=== PATIENT | male | born 1960 | race Hispanic/Latino ===

== ENCOUNTER 2024-02-01 11:11 | Inpatient (IN) | payer SELFPAY ==
[~2024-02-01] VITALS: Ht 182.9 cm; Wt 140.0 kg
[2024-02-01] VITALS (37 sets, daily range): BP systolic 80–120; BP diastolic 40–82; PULSE 66–148; RESP 24–35; O2SAT 97–99
[2024-02-01 11:30] LABS: ABG BASE EXCESS -7.9 mmol/L (-2.0-3.0); ABG HCO3 15.7 mmol/L (21.0-28.0); ABG OXYGEN SATURATION 89.6 % (95.0-99.0); ABG PCO2 28 mmHg (35-48); ABG PH 7.368 (7.35-7.450); CARBON MONOXIDE 2.1; HHb 10.1; PO2, ARTERIAL BG 58.5 mmHg (83.0-108.0); VENT MODE, BG RA (ROOM AIR)
[2024-02-01 11:39] LABS: BASOPHILS # (AUTO) 0.14 K/uL (0.00-0.20); BASOPHILS % (AUTO) 1.2 % (0.0-5.0); EOSINOPHILS # (AUTO) 0.11 K/uL (0.00-0.70); EOSINOPHILS % (AUTO) 0.9 % (0.0-8.0); HEMATOCRIT 40.5 % (42-54); IMMATURE GRANULOCYTE ABSOLUTE 0.59 K/uL (0-1); LYMPHOCYTES # (AUTO) 3.5 K/uL (1.0-4.8); LYMPHOCYTES % (AUTO) 29.2 % (21.0-51.0); MEAN CORPUSCULAR HEMOGLOBIN 30.3 pg (27.0-33.0); MEAN CORPUSCULAR HGB CONC 34.8 g/dL (32.0-36.0); MEAN CORPUSCULAR VOLUME 87.1 fL (79-99); MONOCYTES # (AUTO) 1.2 K/uL (0.1-1.0); MONOCYTES % (AUTO) 9.7 % (3.0-13.0); NEUTROPHILS # (AUTO) 6.5 K/uL (1.8-7.7); NEUTROPHILS % (AUTO) 54.1 % (40.0-77.0); NUCLEATED RED BLOOD CELLS 0.2 % (0.0-0.19); PLATELET COUNT (AUTO) 314 K/uL (130-400); RED BLOOD CELL COUNT(AUTO) 4.65 MIL/uL (4.50-6.20); RED CELL DISTRIBUTION WIDTH 12.5 % (11.0-15.5); WHITE BLOOD COUNT (AUTO) 12.1 K/uL (4.8-10.8)
[2024-02-01 11:47] LABS: CREATININE 2.1 mg/dL (0.5-1.3); POTASSIUM 4.4 mmol/L (3.5-5.1)
[2024-02-01] MEDS ORDERED: acetaMINOPHEN 500 MG TABLET PO ONE (12:00)
[2024-02-01 12:01] LABS: ALBUMIN 3.2 g/dL (3.5-5.0); B-TYPE NATRIURETIC PEPTIDE 25 pg/mL (0-100); BILIRUBIN,TOTAL 0.6 mg/dL (0.2-1.0); MAGNESIUM 2.3 mg/dL (1.80-2.40); TOTAL PROTEIN, SERUM 6.6 g/dL (6.0-8.3)
[2024-02-01] MEDS: proPOFol 1000 MG/100 ML IV PRN (12:12)
[2024-02-01] MEDS: FENTanyl 1000MCG+NS 100ML 100 ML IV SCH (12:26)
[2024-02-01 12:31] LABS: APPEARANCE,URINE CLOUDY (CLEAR); BILIRUBIN,URINE NEGATIVE (NEGATIVE); COLOR,URINE YELLOW (YELLOW); GLUCOSE, URINE (UA) 30 mg/dL (NEGATIVE); KETONES,URINE NEGATIVE (NEGATIVE); LEUKOCYTE ESTERASE ,URINE NEGATIVE Leu/uL (NEGATIVE); NITRATE,URINE NEGATIVE (NEGATIVE); OCCULT BLOOD,URINE LARGE (NEGATIVE); PH,URINE 5.5 (5.0-8.0); PROTEIN,URINE 100 mg/dL (NEGATIVE); UROBILINOGEN,URINE 3 mg/dL (0.2-1.0)
[2024-02-01 12:32] LABS: ADD UA MICROSCOPIC YES
[2024-02-01 12:34] LABS: BACTERIA,URINE RARE /HPF (None Seen); MUCUS,URINE RARE LPF (None Seen); RBC,URINE 51-100 /HPF (0-1); SQUAMOUS EPITHELIAL CELL,UR FEW /HPF (0-2)
[2024-02-01] MEDS: 0.9%NACL 1000ML 2,328 ML IV ONE (12:52)
[2024-02-01] MEDS: acetaMINOPHEN 650 MG SUPPOSITORY RC ONE (13:09)
[2024-02-01] MEDS: proPOFol 1000 MG/100 ML 100 ML IV ONE ×2 (13:12→22:04)
[2024-02-01] MEDS: ZOSYN 3.375GM +NS 50ML IV ONE (13:42)
[2024-02-01] MEDS: ZOSYN 3.375GM+NS 50ML 50 ML ONE (13:43)
[2024-02-01 14:15] LABS: ABG BASE EXCESS -7.9 mmol/L (-2.0-3.0); ABG OXYGEN SATURATION 99.8 % (95.0-99.0); ABG PCO2 57 mmHg (35-48); ABG PH 7.185 (7.35-7.450); VENT MODE, BG AC (ROOM AIR)
[2024-02-01 14:33] LABS: SARS-CoV-2, RNA, NAAT NEGATIVE SARS CoV-2 (NEGATIVE)
[2024-02-01 14:39] LABS: INFLUENZA TYPE A Negative For Type A (NEGATIVE); INFLUENZA TYPE B Negative For Type B (NEGATIVE)
[2024-02-01 14:48] LABS: HEMOGLOBIN A1C 5.7 % (4.0-6.0)
[2024-02-01] MEDS: 0.9%NACL 1000ML 1,000 ML IV SCH ×2 (15:00→17:17)
[2024-02-01] MEDS ORDERED: doCUSate SODIUM 100 MG CAP PO PRN (15:00)
[2024-02-01 16:28] LABS: ABG BASE EXCESS -7.8 mmol/L (-2.0-3.0); ABG HCO3 18.5 mmol/L (21.0-28.0); ABG OXYGEN SATURATION 98.3 % (95.0-99.0); ABG PCO2 41 mmHg (35-48); ABG PH 7.275 (7.35-7.450); VENT MODE, BG AC (ROOM AIR)
[2024-02-01 16:40] LABS: AMPHET/METH SCREEN,URINE NEGATIVE (NEGATIVE); BARBITURATE SCREEN, URINE NEGATIVE (NEGATIVE); BENZODIAZEPINES SCREEN,URINE NEGATIVE (NEGATIVE); CANNABINOID SCREEN,URINE NEGATIVE (NEGATIVE); COCAINE SCREEN,URINE NEGATIVE (NEGATIVE); OPIATE SCREEN,URINE NEGATIVE (NEGATIVE); PHENCYCLIDINE SCREEN,URINE NEGATIVE (NEGATIVE)
[2024-02-01] MEDS: CHLORHEXIDINE GLUCONATE 15 ML MOUTHWASH MM SCH (17:14)
[2024-02-01] MEDS: ARTIFICAL TEARS SOL 15 ML OU SCH (17:14)
[2024-02-01] MEDS: acetaMINOPHEN 325 MG SUPPOSITORY RC ONE (17:15)
[2024-02-01] MEDS: IpraTROPium 0.5 MG/2.5 ML INH IH PRN (17:19)
[2024-02-01] MEDS: acetaMINOPHEN 500 MG TABLET NG PRN (17:19)
[2024-02-01] MEDS: ASPIRIN 81MG CHEW TAB NG ONE (17:19)
[2024-02-01] MEDS: BUDESONIDE 0.5 MG/2 ML INH IH SCH (17:19)
[2024-02-01] MEDS: DOXYCYCLINE 100MG+NS 250ML 250 ML IV SCH (17:43)
[2024-02-01 17:52] LABS: CREATININE 2.1 mg/dL (0.5-1.3); POTASSIUM 3.4 mmol/L (3.5-5.1)
[2024-02-01] MEDS: SODIUM BICARB 50MEQ 50ML VIAL IV STA (18:50)
[2024-02-01] MEDS: NOREPINEPHRIN 4MG/NS 250ML 250 ML IV PRN (19:49)
[2024-02-01] MEDS: FAMOTIDINE 20MG VIAL IV SCH (20:17)
[2024-02-01] MEDS: LACTULOSE 20 GM/30 ML UDCUP PO SCH (20:22)
[2024-02-01 20:36] LABS: CREATININE 2.2 mg/dL (0.5-1.3); POTASSIUM 3.5 mmol/L (3.5-5.1)
[2024-02-01] MEDS: 0.9% NACL 250ML 250 ML IV ONE (21:13)
[2024-02-01 21:27] LABS: INR 1.44 (0.85-1.15); PROTHROMBIN TIME 15.1 SEC (9.6-11.6)
[2024-02-01 21:28] LABS: PARTIAL THROMBOPLASTIN TIME 26.2 SEC (26.3-35.5)
[2024-02-01] MEDS: ZOSYN 3.375GM +NS 50ML IVPB SCH (21:34)
[2024-02-01] MEDS ORDERED: METRONIDAZOLE 500MG/100ML BAG 100 ML IVPB SCH (22:00)
[2024-02-01] MEDS ORDERED: FENTanyl CITRate PF 0.05 MG/ML 2,500 MCG in 0.9% NACL 250ML 200 ML IJ PRN (23:30)
[2024-02-02] VITALS (105 sets, daily range): BP systolic 92–129; BP diastolic 37–67; PULSE 50–84; RESP 16–25; O2SAT 96–100
[2024-02-02] MEDS: 0.9% NACL 500ML IV.SOLN 500 ML IV ONE (00:10)
[2024-02-02] MEDS: FENTanyl 2500MCG+NS 250ML 250 ML IV ONE (00:12)
[2024-02-02 02:04] LABS: BASOPHILS # (AUTO) 0.04 K/uL (0.00-0.20); BASOPHILS % (AUTO) 0.3 % (0.0-5.0); HEMATOCRIT 38.3 % (42-54); IMMATURE GRANULOCYTE ABSOLUTE 0.07 K/uL (0-1); LYMPHOCYTES # (AUTO) 1.7 K/uL (1.0-4.8); LYMPHOCYTES % (AUTO) 12.7 % (21.0-51.0); MEAN CORPUSCULAR HGB CONC 33.7 g/dL (32.0-36.0); MEAN CORPUSCULAR VOLUME 89.1 fL (79-99); MONOCYTES % (AUTO) 7.5 % (3.0-13.0); NEUTROPHILS # (AUTO) 10.5 K/uL (1.8-7.7); PLATELET COUNT (AUTO) 180 K/uL (130-400); RED CELL DISTRIBUTION WIDTH 13.3 % (11.0-15.5); WHITE BLOOD COUNT (AUTO) 13.3 K/uL (4.8-10.8)
[2024-02-02 02:35] LABS: CREATININE 2.3 mg/dL (0.5-1.3); MAGNESIUM 2.3 mg/dL (1.80-2.40); PHOSPHORUS 4.6 mg/dL (2.5-4.9); POTASSIUM 3.5 mmol/L (3.5-5.1); THYROID STIMULATING HORMONE 0.98 uIU/mL (0.36-3.74)
[2024-02-02] MEDS: proPOFol 1000 MG/100 ML IV PRN (03:02)
[2024-02-02] MEDS: POTASSIUM CHLORIDE 10% ELIXIR 20 MEQ/15 ML UDCUP NG ONE (03:21)
[2024-02-02 03:44] LABS: ABG HCO3 17.5 mmol/L (21.0-28.0); ABG OXYGEN SATURATION 94.9 % (95.0-99.0); ABG PCO2 40 mmHg (35-48); ABG PH 7.262 (7.35-7.450); PO2, ARTERIAL BG 84.2 mmHg (83.0-108.0); VENT MODE, BG AC VC (ROOM AIR)
[2024-02-02] MEDS: IpraTROPium/alBUTERol SULFATE 3 ML SOLUTION IH SCH (06:43)
[2024-02-02] MEDS: METRONIDAZOLE 500MG/100ML BAG 100 ML IVPB SCH (06:44)
[2024-02-02] MEDS: ceFEPime HCL 2 GM VIAL IVPB SCH (08:23)
[2024-02-02] MEDS: ENOXAPARIN SODIUM 40 MG/0.4 ML SYRINGE SQ SCH (08:25)
[2024-02-02 08:46] LABS: CREATININE 2.4 mg/dL (0.5-1.3); POTASSIUM 4.2 mmol/L (3.5-5.1)
[2024-02-02] MEDS ORDERED: POTASSIUM CHLORIDE 10% ELIXIR 20 MEQ/15 ML UDCUP PO PRN (09:00)
[2024-02-02] MEDS ORDERED: KCL 20 MEQ ERTAB PO PRN (09:00)
[2024-02-02] MEDS: SODIUM BICARB 50MEQ 50ML VIAL 150 ML ONE (09:10)
[2024-02-02] MEDS: POTASSIUM CHLORIDE 10% ELIXIR 20 MEQ/15 ML UDCUP ONE (09:11)
[2024-02-02] MEDS: SODIUM BICARB 50MEQ 50ML VIAL IV ONE (09:11)
[2024-02-02] MEDS: KCL 20 MEQ ERTAB PO ONE (09:23)
[2024-02-02 09:44] LABS: ABG BASE EXCESS -4.1 mmol/L (-2.0-3.0); ABG HCO3 21.2 mmol/L (21.0-28.0); ABG OXYGEN SATURATION 96.5 % (95.0-99.0); ABG PCO2 40 mmHg (35-48); ABG PH 7.345 (7.35-7.450); DEVICE COMMENT NP NELY; PO2, ARTERIAL BG 90.3 mmHg (83.0-108.0)
[2024-02-02] MEDS: THIAMINE HCL 100 MG/ML 2ML VIAL IVP SCH (10:07)
[2024-02-02] MEDS: FOLic ACID 5 MG/ML VIAL IV SCH (12:33)
[2024-02-02] MEDS: BUMETANIDE 2.5MG/10ML (DRIP) 40 ML IV SCH (12:41)
[2024-02-02] MEDS: FENTanyl 2500MCG+NS 250ML 250 ML IV SCH (12:54)
[2024-02-02 16:56] LABS: CREATININE 2.4 mg/dL (0.5-1.3); POTASSIUM 3.7 mmol/L (3.5-5.1)
[2024-02-02] MEDS: 0.9%NACL 10ML VIAL IV SCH (20:30)
[2024-02-02] MEDS ORDERED: NOREPINEPHRINE BITARTRATE 32 MG in 0.9% NACL 250ML 250 ML IV PRN (20:30)
[2024-02-02 21:18] LABS: CREATININE 2.6 mg/dL (0.5-1.3); POTASSIUM 3.8 mmol/L (3.5-5.1)
[2024-02-02] MEDS: HEParin 5,000 UNIT VIAL SQ SCH (23:02)
[2024-02-03] VITALS (103 sets, daily range): BP systolic 92–143; BP diastolic 48–64; PULSE 50–87; RESP 24–27; TEMP 101.6; O2SAT 96–100
[2024-02-03 03:48] LABS: HEMATOCRIT 40.7 % (42-54); MEAN CORPUSCULAR HEMOGLOBIN 29.9 pg (27.0-33.0); MEAN CORPUSCULAR HGB CONC 33.4 g/dL (32.0-36.0); MEAN CORPUSCULAR VOLUME 89.5 fL (79-99); NUCLEATED RED BLOOD CELLS 0.3 % (0.0-0.19); RED BLOOD CELL COUNT(AUTO) 4.55 MIL/uL (4.50-6.20); RED CELL DISTRIBUTION WIDTH 13.5 % (11.0-15.5); WHITE BLOOD COUNT (AUTO) 10.5 K/uL (4.8-10.8)
[2024-02-03 04:21] LABS: ALBUMIN 2.6 g/dL (3.5-5.0); BILIRUBIN,TOTAL 2.4 mg/dL (0.2-1.0); CREATININE 2.7 mg/dL (0.5-1.3); POTASSIUM 3.7 mmol/L (3.5-5.1); TOTAL PROTEIN, SERUM 5.4 g/dL (6.0-8.3)
[2024-02-03] MEDS: LACTULOSE 20 GM/30 ML UDCUP PO SCH (07:51)
[2024-02-03] MEDS: ARTIFICAL TEARS SOL 15 ML OU SCH (07:52)
[2024-02-03 08:31] LABS: ABG BASE EXCESS -5.6 mmol/L (-2.0-3.0); ABG HCO3 20.3 mmol/L (21.0-28.0); ABG OXYGEN SATURATION 92.8 % (95.0-99.0); ABG PCO2 41 mmHg (35-48); DEVICE COMMENT LR RENE RN; PO2, ARTERIAL BG 70.6 mmHg (83.0-108.0); VENT MODE, BG AC (ROOM AIR)
[2024-02-03] MEDS: MIDODRINE HCL 5 MG TABLET PO SCH (08:53)
[2024-02-03] MEDS: PANTOPRAZOLE 40 MG/VIAL IVP SCH (08:53)
[2024-02-03] MEDS: Solu-medROL 40MG VIAL IVP SCH (08:53)
[2024-02-03] MEDS: LACTATED RINGERS 500 ML IV ONE (08:53)
[2024-02-03] MEDS: LACTATED RINGERS 1000ML 1,000 ML IV SCH (08:53)
[2024-02-03 09:15] LABS: CREATININE,URINE RANDOM 52.98 mg/dL (30-135)
[2024-02-03] MEDS: SODIUM BICARB 50MEQ 50ML VIAL IV ONE (09:30)
[2024-02-03] MEDS: POTASSIUM CHLORIDE 10MEQ/100ML 100 ML IV PRN (10:17)
[2024-02-03 10:52] LABS: CREATININE 2.8 mg/dL (0.5-1.3); POTASSIUM 3.9 mmol/L (3.5-5.1)
[2024-02-03 13:29] LABS: ABG BASE EXCESS -4.3 mmol/L (-2.0-3.0); ABG HCO3 20.4 mmol/L (21.0-28.0); ABG PCO2 37 mmHg (35-48); ABG PH 7.364 (7.35-7.450); CARBON MONOXIDE 0.9; PO2, ARTERIAL BG 106.5 mmHg (83.0-108.0); VENT MODE, BG AC (ROOM AIR)
[2024-02-03 15:52] LABS: CREATININE 2.8 mg/dL (0.5-1.3); POTASSIUM 4.3 mmol/L (3.5-5.1)
[2024-02-03 16:30] LABS: CHOLESTEROL 157 mg/dL (<200); HDL CHOLESTEROL 18 mg/dL (29-71); LDL DIRECT 40 mg/dL (0-99); TRIGLYCERIDES 776 mg/dL (30-200)
[2024-02-03 21:15] LABS: CREATININE 2.7 mg/dL (0.5-1.3); POTASSIUM 4.6 mmol/L (3.5-5.1)
[2024-02-04] VITALS (100 sets, daily range): BP systolic 102–188; BP diastolic 42–100; PULSE 46–112; RESP 4–28; O2SAT 92–97
[2024-02-04 04:43] LABS: BASOPHILS # (AUTO) 0.01 K/uL (0.00-0.20); BASOPHILS % (AUTO) 0.1 % (0.0-5.0); HEMATOCRIT 37.7 % (42-54); IMMATURE GRANULOCYTE ABSOLUTE 0.06 K/uL (0-1); LYMPHOCYTES # (AUTO) 0.3 K/uL (1.0-4.8); LYMPHOCYTES % (AUTO) 4.1 % (21.0-51.0); MEAN CORPUSCULAR HEMOGLOBIN 30.2 pg (27.0-33.0); MEAN CORPUSCULAR VOLUME 88.9 fL (79-99); MONOCYTES # (AUTO) 0.4 K/uL (0.1-1.0); MONOCYTES % (AUTO) 5.4 % (3.0-13.0); NEUTROPHILS # (AUTO) 7.1 K/uL (1.8-7.7); NEUTROPHILS % (AUTO) 89.6 % (40.0-77.0); PLATELET COUNT (AUTO) 175 K/uL (130-400); RED BLOOD CELL COUNT(AUTO) 4.24 MIL/uL (4.50-6.20); RED CELL DISTRIBUTION WIDTH 13.3 % (11.0-15.5)
[2024-02-04 05:08] LABS: ALBUMIN 2.3 g/dL (3.5-5.0); BILIRUBIN,TOTAL 2.9 mg/dL (0.2-1.0); CREATININE 2.6 mg/dL (0.5-1.3); POTASSIUM 4.4 mmol/L (3.5-5.1)
[2024-02-04] MEDS: POLYETHYLENE GLYCOL 3350 17 GM POWD.PACK PO SCH (08:49)
[2024-02-04 09:51] LABS: ABG BASE EXCESS -2.1 mmol/L (-2.0-3.0); ABG HCO3 24.4 mmol/L (21.0-28.0); ABG OXYGEN SATURATION 90.7 % (95.0-99.0); ABG PCO2 48 mmHg (35-48); ABG PH 7.326 (7.35-7.450); DEVICE COMMENT RN NIOBE; PO2, ARTERIAL BG 63.9 mmHg (83.0-108.0); VENT MODE, BG CPAP 10 (ROOM AIR)
[2024-02-04] MEDS: FUROSEMIDE 20MG VIAL IV ONE (10:25)
[2024-02-04] MEDS: ONDANSETRON 4MG INJ ONE (11:08)
[2024-02-04 13:26] LABS: ABG BASE EXCESS -2.8 mmol/L (-2.0-3.0); ABG OXYGEN SATURATION 94.1 % (95.0-99.0); ABG PCO2 44 mmHg (35-48); ABG PH 7.339 (7.35-7.450); DEVICE COMMENT NIOBE RN RR; PO2, ARTERIAL BG 74.4 mmHg (83.0-108.0); VENT MODE, BG SIMV (ROOM AIR)
[2024-02-04] MEDS: SODIUM BICARB 50MEQ 50ML VIAL IV ONE (17:27)
[2024-02-04] MEDS: [UNRECOGNIZED DRUG - OTHER] IVP SCH (18:40)
[2024-02-04] MEDS: SODIUM BICARB IVP SCH (18:40)
[2024-02-04] MEDS: BALSAM PERU/CASTOR OIL 60 GM TUBE TP SCH (21:13)
[2024-02-05] VITALS (49 sets, daily range): BP systolic 105–162; BP diastolic 35–94; PULSE 53–100; RESP 10–30; O2SAT 92–99
[2024-02-05 03:52] LABS: BASOPHILS # (AUTO) 0.01 K/uL (0.00-0.20); BASOPHILS % (AUTO) 0.1 % (0.0-5.0); EOSINOPHILS # (AUTO) 0.01 K/uL (0.00-0.70); EOSINOPHILS % (AUTO) 0.1 % (0.0-8.0); HEMATOCRIT 35.3 % (42-54); LYMPHOCYTES # (AUTO) 0.3 K/uL (1.0-4.8); MEAN CORPUSCULAR HGB CONC 34.6 g/dL (32.0-36.0); MEAN CORPUSCULAR VOLUME 86.7 fL (79-99); MONOCYTES # (AUTO) 0.5 K/uL (0.1-1.0); MONOCYTES % (AUTO) 6.2 % (3.0-13.0); NEUTROPHILS # (AUTO) 7.6 K/uL (1.8-7.7); NEUTROPHILS % (AUTO) 88.4 % (40.0-77.0); PLATELET COUNT (AUTO) 154 K/uL (130-400); RED BLOOD CELL COUNT(AUTO) 4.07 MIL/uL (4.50-6.20); RED CELL DISTRIBUTION WIDTH 13.1 % (11.0-15.5); WHITE BLOOD COUNT (AUTO) 8.6 K/uL (4.8-10.8)
[2024-02-05 04:21] LABS: ALBUMIN 2.3 g/dL (3.5-5.0); BILIRUBIN,TOTAL 4.6 mg/dL (0.2-1.0); CREATININE 1.9 mg/dL (0.5-1.3); POTASSIUM 3.8 mmol/L (3.5-5.1)
[2024-02-05] MEDS ORDERED: COMPOUND IV REFRIGERATED 1 EACH IVSOLN MISC PRN (08:30)
[2024-02-05] MEDS: BALSAM PERU/CASTOR OIL 60 GM TUBE TP SCH (10:33)
[2024-02-05] MEDS: MIDODRINE HCL 5 MG TABLET PO SCH (11:00)
[2024-02-06] VITALS (12 sets, daily range): BP systolic 140–169; BP diastolic 76–91; PULSE 70–92; RESP 16–22; O2SAT 92–96
[2024-02-06 03:49] LABS: BASOPHILS # (AUTO) 0.03 K/uL (0.00-0.20); BASOPHILS % (AUTO) 0.4 % (0.0-5.0); IMMATURE GRANULOCYTE ABSOLUTE 0.25 K/uL (0-1); LYMPHOCYTES # (AUTO) 0.5 K/uL (1.0-4.8); LYMPHOCYTES % (AUTO) 6.6 % (21.0-51.0); MEAN CORPUSCULAR HEMOGLOBIN 29.5 pg (27.0-33.0); MEAN CORPUSCULAR HGB CONC 33.1 g/dL (32.0-36.0); MEAN CORPUSCULAR VOLUME 89.1 fL (79-99); MONOCYTES # (AUTO) 0.6 K/uL (0.1-1.0); MONOCYTES % (AUTO) 8.9 % (3.0-13.0); NEUTROPHILS # (AUTO) 5.5 K/uL (1.8-7.7); NEUTROPHILS % (AUTO) 80.4 % (40.0-77.0); PLATELET COUNT (AUTO) 152 K/uL (130-400); RED BLOOD CELL COUNT(AUTO) 3.93 MIL/uL (4.50-6.20); RED CELL DISTRIBUTION WIDTH 12.9 % (11.0-15.5); WHITE BLOOD COUNT (AUTO) 6.8 K/uL (4.8-10.8)
[2024-02-06 04:12] LABS: ALBUMIN 2.2 g/dL (3.5-5.0); BILIRUBIN,TOTAL 4.9 mg/dL (0.2-1.0); CREATININE 1.5 mg/dL (0.5-1.3); MAGNESIUM 1.7 mg/dL (1.80-2.40); PHOSPHORUS 3.3 mg/dL (2.5-4.9); POTASSIUM 3.6 mmol/L (3.5-5.1); TOTAL PROTEIN, SERUM 4.9 g/dL (6.0-8.3)
[2024-02-06] MEDS: POTASSIUM CHLORIDE 10MEQ SR TAB PO PRN (06:11)
[2024-02-06] MEDS: Solu-medROL 40MG VIAL IVP SCH (08:14)
[2024-02-06] MEDS: MAGNESIUM 2GM PREMIX 50ML 50 ML IV SCH (08:15)
[2024-02-06] MEDS: 0.9%NACL 1000ML 1,000 ML IV SCH (14:36)
[2024-02-06 16:56] LABS: APPEARANCE,URINE CLEAR (CLEAR); BILIRUBIN,URINE NEGATIVE (NEGATIVE); COLOR,URINE YELLOW (YELLOW); GLUCOSE, URINE (UA) 50 mg/dL (NEGATIVE); KETONES,URINE NEGATIVE (NEGATIVE); LEUKOCYTE ESTERASE ,URINE NEGATIVE Leu/uL (NEGATIVE); NITRATE,URINE NEGATIVE (NEGATIVE); OCCULT BLOOD,URINE LARGE (NEGATIVE); PROTEIN,URINE 70 mg/dL (NEGATIVE); UROBILINOGEN,URINE 0.2 mg/dL (0.2-1.0)
[2024-02-06 17:00] LABS: ADD UA MICROSCOPIC YES
[2024-02-06 20:15] LABS: HEMATOCRIT 36.6 % (42-54)
[2024-02-07] VITALS (17 sets, daily range): BP systolic 125–174; BP diastolic 63–99; PULSE 77–96; RESP 18–24; O2SAT 92–96
[2024-02-07 04:25] LABS: BASOPHILS # (AUTO) 0.06 K/uL (0.00-0.20); BASOPHILS % (AUTO) 0.6 % (0.0-5.0); HEMATOCRIT 34.9 % (42-54); IMMATURE GRANULOCYTE ABSOLUTE 0.66 K/uL (0-1); LYMPHOCYTES # (AUTO) 0.7 K/uL (1.0-4.8); MEAN CORPUSCULAR HEMOGLOBIN 30.4 pg (27.0-33.0); MEAN CORPUSCULAR HGB CONC 34.1 g/dL (32.0-36.0); MONOCYTES # (AUTO) 0.9 K/uL (0.1-1.0); MONOCYTES % (AUTO) 9.6 % (3.0-13.0); NEUTROPHILS # (AUTO) 7.2 K/uL (1.8-7.7); NEUTROPHILS % (AUTO) 75.8 % (40.0-77.0); NUCLEATED RED BLOOD CELLS 0.3 % (0.0-0.19); PLATELET COUNT (AUTO) 146 K/uL (130-400); RED BLOOD CELL COUNT(AUTO) 3.92 MIL/uL (4.50-6.20); WHITE BLOOD COUNT (AUTO) 9.5 K/uL (4.8-10.8)
[2024-02-07 04:43] LABS: ALBUMIN 2.3 g/dL (3.5-5.0); BILIRUBIN,TOTAL 4.1 mg/dL (0.2-1.0); CREATININE 1.1 mg/dL (0.5-1.3); POTASSIUM 3.8 mmol/L (3.5-5.1); TOTAL PROTEIN, SERUM 4.9 g/dL (6.0-8.3)
[2024-02-07 05:03] LABS: HIV 1&2 ANTIBODY Non-Reactive (Negative); HIV-1 p24 Antigen Non-Reactive (Negative)
[2024-02-07] MEDS ORDERED: hydrALAZine 20MG/ML VIAL IV PRN (11:00)
[2024-02-07 11:14] LABS: ABG BASE EXCESS 2.5 mmol/L (-2.0-3.0); ABG HCO3 26.7 mmol/L (21.0-28.0); ABG OXYGEN SATURATION 72.2 % (94.0-98.0); ABG PCO2 40 mmHg (35-48); ABG PH 7.446 (7.350-7.450); DEVICE COMMENT RRMARCIA; PO2, ARTERIAL BG < 45.0 mmHg (83.0-108.0); VENT MODE, BG NC (ROOM AIR)
[2024-02-07 15:51] LABS: HEPATITIS A IGM ANTIBODY Non-Reactive (Nonreactive); HEPATITIS B CORE IGM ANTIBODY Non-Reactive (Negative); HEPATITIS B SURFACE ANTIGEN Non-Reactive (Nonreactive); HEPATITIS C ANTIBODY Non-Reactive (Nonreactive)
[2024-02-08] VITALS (13 sets, daily range): BP systolic 145–173; BP diastolic 81–96; PULSE 86–100; RESP 16–28; O2SAT 91–98
[2024-02-08 04:01] LABS: BASOPHILS # (AUTO) 0.08 K/uL (0.00-0.20); BASOPHILS % (AUTO) 0.9 % (0.0-5.0); EOSINOPHILS # (AUTO) 0.02 K/uL (0.00-0.70); EOSINOPHILS % (AUTO) 0.2 % (0.0-8.0); HEMATOCRIT 34.3 % (42-54); IMMATURE GRANULOCYTE ABSOLUTE 1.08 K/uL (0-1); LYMPHOCYTES % (AUTO) 10.5 % (21.0-51.0); MEAN CORPUSCULAR HEMOGLOBIN 29.6 pg (27.0-33.0); MEAN CORPUSCULAR HGB CONC 33.8 g/dL (32.0-36.0); MEAN CORPUSCULAR VOLUME 87.5 fL (79-99); MONOCYTES # (AUTO) 0.5 K/uL (0.1-1.0); MONOCYTES % (AUTO) 5.3 % (3.0-13.0); NEUTROPHILS # (AUTO) 6.6 K/uL (1.8-7.7); NEUTROPHILS % (AUTO) 71.4 % (40.0-77.0); NUCLEATED RED BLOOD CELLS 0.9 % (0.0-0.19); PLATELET COUNT (AUTO) 171 K/uL (130-400); RED BLOOD CELL COUNT(AUTO) 3.92 MIL/uL (4.50-6.20); RED CELL DISTRIBUTION WIDTH 13.3 % (11.0-15.5); WHITE BLOOD COUNT (AUTO) 9.2 K/uL (4.8-10.8)
[2024-02-08 05:27] LABS: ALBUMIN 2.1 g/dL (3.5-5.0); BILIRUBIN,TOTAL 3.2 mg/dL (0.2-1.0); CREATININE 0.9 mg/dL (0.5-1.3); MAGNESIUM 1.6 mg/dL (1.80-2.40); PHOSPHORUS 2.6 mg/dL (2.5-4.9); POTASSIUM 3.4 mmol/L (3.5-5.1); TOTAL PROTEIN, SERUM 4.7 g/dL (6.0-8.3)
[2024-02-08] MEDS: amLODIPine 5 MG TAB PO SCH (09:17)
[2024-02-08] MEDS: PREDNISONE 20 MG TABLET PO SCH (09:17)
[2024-02-08] MEDS: LoSARTan 50 MG TABLET PO SCH (09:17)
[2024-02-08] MEDS ORDERED: ONDANSETRON 4MG INJ IVP PRN (12:00)
[2024-02-08] MEDS: FUROSEMIDE 40MG VIAL IV ONE (12:56)
[2024-02-08] MEDS ORDERED: FUROSEMIDE 40MG VIAL IV ONE (13:30)
[2024-02-08] MEDS: LACTATED RINGERS 1000ML 1,000 ML IV SCH (15:30)
[2024-02-09] VITALS (14 sets, daily range): BP systolic 120–161; BP diastolic 69–108; PULSE 75–98; RESP 18–28; O2SAT 93–98
[2024-02-09 05:17] LABS: BASOPHILS # (AUTO) 0.07 K/uL (0.00-0.20); BASOPHILS % (AUTO) 0.8 % (0.0-5.0); EOSINOPHILS # (AUTO) 0.03 K/uL (0.00-0.70); EOSINOPHILS % (AUTO) 0.3 % (0.0-8.0); HEMATOCRIT 35.8 % (42-54); IMMATURE GRANULOCYTE ABSOLUTE 0.76 K/uL (0-1); LYMPHOCYTES % (AUTO) 11.4 % (21.0-51.0); MEAN CORPUSCULAR HEMOGLOBIN 30.6 pg (27.0-33.0); MEAN CORPUSCULAR HGB CONC 34.1 g/dL (32.0-36.0); MEAN CORPUSCULAR VOLUME 89.7 fL (79-99); MONOCYTES # (AUTO) 0.4 K/uL (0.1-1.0); MONOCYTES % (AUTO) 3.9 % (3.0-13.0); NEUTROPHILS # (AUTO) 6.7 K/uL (1.8-7.7); NUCLEATED RED BLOOD CELLS 0.2 % (0.0-0.19); PLATELET COUNT (AUTO) 160 K/uL (130-400); RED BLOOD CELL COUNT(AUTO) 3.99 MIL/uL (4.50-6.20); RED CELL DISTRIBUTION WIDTH 13.6 % (11.0-15.5); WHITE BLOOD COUNT (AUTO) 8.9 K/uL (4.8-10.8)
[2024-02-09 05:41] LABS: B-TYPE NATRIURETIC PEPTIDE 257 pg/mL (0-100)
[2024-02-09 06:04] LABS: ALBUMIN 2.1 g/dL (3.5-5.0); BILIRUBIN,TOTAL 2.8 mg/dL (0.2-1.0); CREATININE 1.1 mg/dL (0.5-1.3); POTASSIUM 3.4 mmol/L (3.5-5.1)
[2024-02-09] MEDS ORDERED: MAGNESIUM 2GM PREMIX 50ML 50 ML IV PRN (14:00)
[2024-02-10] VITALS (12 sets, daily range): BP systolic 135–152; BP diastolic 65–89; PULSE 74–101; RESP 18–21; O2SAT 84–95
[2024-02-10 04:12] LABS: BASOPHILS # (AUTO) 0.05 K/uL (0.00-0.20); BASOPHILS % (AUTO) 0.6 % (0.0-5.0); EOSINOPHILS # (AUTO) 0.03 K/uL (0.00-0.70); EOSINOPHILS % (AUTO) 0.3 % (0.0-8.0); HEMATOCRIT 34.5 % (42-54); IMMATURE GRANULOCYTE ABSOLUTE 0.56 K/uL (0-1); MEAN CORPUSCULAR HEMOGLOBIN 30.6 pg (27.0-33.0); MEAN CORPUSCULAR HGB CONC 33.6 g/dL (32.0-36.0); MONOCYTES # (AUTO) 0.4 K/uL (0.1-1.0); MONOCYTES % (AUTO) 4.4 % (3.0-13.0); NEUTROPHILS # (AUTO) 6.9 K/uL (1.8-7.7); NEUTROPHILS % (AUTO) 77.4 % (40.0-77.0); PLATELET COUNT (AUTO) 171 K/uL (130-400); RED BLOOD CELL COUNT(AUTO) 3.79 MIL/uL (4.50-6.20); RED CELL DISTRIBUTION WIDTH 14.3 % (11.0-15.5); WHITE BLOOD COUNT (AUTO) 8.9 K/uL (4.8-10.8)
[2024-02-10 04:31] LABS: BILIRUBIN,DIRECT 1.5 mg/dL (0.0-0.3); BILIRUBIN,TOTAL 2.2 mg/dL (0.2-1.0); CREATININE 1.1 mg/dL (0.5-1.3); MAGNESIUM 1.9 mg/dL (1.80-2.40); POTASSIUM 3.6 mmol/L (3.5-5.1); TOTAL PROTEIN, SERUM 4.8 g/dL (6.0-8.3)
[2024-02-10] MEDS: FUROSEMIDE 40MG VIAL IV SCH (17:39)
[2024-02-11] VITALS (11 sets, daily range): BP systolic 114–145; BP diastolic 60–92; PULSE 81–94; RESP 17–20; O2SAT 94–97
[2024-02-11 01:09] LABS: HEPATITIS A ANTIBODY IGM Negative (Negative); HEPATITIS B CORE IGM Negative (Negative); HEPATITIS Bs ANTIGEN SCREEN P Negative (Negative); HEPATITIS C VIRUS ANTIBODY Non Reactive (Non Reactive)
[2024-02-11 05:25] LABS: BASOPHILS # (AUTO) 0.03 K/uL (0.00-0.20); BASOPHILS % (AUTO) 0.4 % (0.0-5.0); EOSINOPHILS # (AUTO) 0.04 K/uL (0.00-0.70); EOSINOPHILS % (AUTO) 0.5 % (0.0-8.0); HEMATOCRIT 34.9 % (42-54); IMMATURE GRANULOCYTE ABSOLUTE 0.41 K/uL (0-1); LYMPHOCYTES % (AUTO) 12.1 % (21.0-51.0); MEAN CORPUSCULAR HEMOGLOBIN 30.2 pg (27.0-33.0); MEAN CORPUSCULAR HGB CONC 33.2 g/dL (32.0-36.0); MEAN CORPUSCULAR VOLUME 90.9 fL (79-99); MONOCYTES # (AUTO) 0.5 K/uL (0.1-1.0); NEUTROPHILS # (AUTO) 6.5 K/uL (1.8-7.7); NEUTROPHILS % (AUTO) 76.2 % (40.0-77.0); PLATELET COUNT (AUTO) 200 K/uL (130-400); RED BLOOD CELL COUNT(AUTO) 3.84 MIL/uL (4.50-6.20); RED CELL DISTRIBUTION WIDTH 14.6 % (11.0-15.5); WHITE BLOOD COUNT (AUTO) 8.5 K/uL (4.8-10.8)
[2024-02-11 06:07] LABS: ALBUMIN 2.1 g/dL (3.5-5.0); BILIRUBIN,TOTAL 2.3 mg/dL (0.2-1.0); CREATININE 1.2 mg/dL (0.5-1.3); MAGNESIUM 1.8 mg/dL (1.80-2.40); POTASSIUM 3.4 mmol/L (3.5-5.1); TOTAL PROTEIN, SERUM 4.9 g/dL (6.0-8.3)
[2024-02-11] MEDS: FUROSEMIDE 40MG VIAL IV ONE (10:24)
[2024-02-12] VITALS (15 sets, daily range): BP systolic 125–143; BP diastolic 55–78; PULSE 76–100; RESP 18–20; O2SAT 93–96
[2024-02-12 05:54] LABS: BASOPHILS # (AUTO) 0.04 K/uL (0.00-0.20); BASOPHILS % (AUTO) 0.5 % (0.0-5.0); EOSINOPHILS % (AUTO) 1.2 % (0.0-8.0); HEMATOCRIT 37.1 % (42-54); IMMATURE GRANULOCYTE ABSOLUTE 0.35 K/uL (0-1); LYMPHOCYTES % (AUTO) 12.1 % (21.0-51.0); MEAN CORPUSCULAR HEMOGLOBIN 30.2 pg (27.0-33.0); MEAN CORPUSCULAR HGB CONC 32.9 g/dL (32.0-36.0); MEAN CORPUSCULAR VOLUME 91.8 fL (79-99); MONOCYTES # (AUTO) 0.6 K/uL (0.1-1.0); NEUTROPHILS # (AUTO) 6.2 K/uL (1.8-7.7); PLATELET COUNT (AUTO) 220 K/uL (130-400); RED BLOOD CELL COUNT(AUTO) 4.04 MIL/uL (4.50-6.20); RED CELL DISTRIBUTION WIDTH 14.6 % (11.0-15.5); WHITE BLOOD COUNT (AUTO) 8.3 K/uL (4.8-10.8)
[2024-02-12 06:30] LABS: ALBUMIN 2.3 g/dL (3.5-5.0); BILIRUBIN,TOTAL 2.2 mg/dL (0.2-1.0); CREATININE 1.2 mg/dL (0.5-1.3); POTASSIUM 3.4 mmol/L (3.5-5.1); TOTAL PROTEIN, SERUM 5.4 g/dL (6.0-8.3)
[2024-02-13] VITALS (7 sets, daily range): BP systolic 120–146; BP diastolic 57–74; PULSE 80–91; RESP 18; O2SAT 93
[2024-02-13 06:17] LABS: BASOPHILS # (AUTO) 0.04 K/uL (0.00-0.20); BASOPHILS % (AUTO) 0.6 % (0.0-5.0); EOSINOPHILS # (AUTO) 0.13 K/uL (0.00-0.70); EOSINOPHILS % (AUTO) 1.9 % (0.0-8.0); HEMATOCRIT 34.2 % (42-54); IMMATURE GRANULOCYTE ABSOLUTE 0.35 K/uL (0-1); LYMPHOCYTES # (AUTO) 0.8 K/uL (1.0-4.8); LYMPHOCYTES % (AUTO) 12.2 % (21.0-51.0); MEAN CORPUSCULAR HEMOGLOBIN 30.2 pg (27.0-33.0); MEAN CORPUSCULAR HGB CONC 32.7 g/dL (32.0-36.0); MEAN CORPUSCULAR VOLUME 92.2 fL (79-99); MONOCYTES # (AUTO) 0.6 K/uL (0.1-1.0); MONOCYTES % (AUTO) 8.8 % (3.0-13.0); NEUTROPHILS # (AUTO) 4.8 K/uL (1.8-7.7); NEUTROPHILS % (AUTO) 71.3 % (40.0-77.0); PLATELET COUNT (AUTO) 228 K/uL (130-400); RED BLOOD CELL COUNT(AUTO) 3.71 MIL/uL (4.50-6.20); RED CELL DISTRIBUTION WIDTH 14.6 % (11.0-15.5); WHITE BLOOD COUNT (AUTO) 6.8 K/uL (4.8-10.8)
[2024-02-13 07:00] LABS: MAGNESIUM 1.6 mg/dL (1.80-2.40)
[2024-02-13] MEDS: FUROSEMIDE 20MG VIAL IV ONE (10:27)
[2024-02-13] MEDS ORDERED: BALS60OI TP (16:23)
[2024-02-13] MEDS ORDERED: LOSA-418 PO (16:23)
[2024-02-13] MEDS ORDERED: AMLO5TAB4 PO (16:23)
[2024-02-13] MEDS ORDERED: LACT PO (16:23)
== END 2024-02-13 19:06 | disposition home or self-care (01) | DRG 208 ==
LOC: EDH 11:11 → EDHIP 13:57 → 2BH 15:07 → 2AH 02-06 01:36 → 3DH 02-08 11:12
PROVIDERS: ADMIT Internal Medicine; ATTEND Internal Medicine
PROC: 5A1945Z Respiratory Ventilation, 24-96 Consecutive Hours (ICD-10-PCS; principal; 2024-02-01)
PROC: 0BH17EZ Insertion of Endotracheal Airway into Trachea, Via Natural or Artificial Opening (ICD-10-PCS; 2024-02-01)
DX: J96.01 Acute respiratory failure with hypoxia (principal); G92.8 Other toxic encephalopathy; I21.A1 Myocardial infarction type 2; K72.00 Acute and subacute hepatic failure without coma; J81.0 Acute pulmonary edema; J15.9 Unspecified bacterial pneumonia; N17.9 Acute kidney failure, unspecified; E87.29 Other acidosis; M62.82 Rhabdomyolysis; T67.01XA Heatstroke and sunstroke, initial encounter; N30.00 Acute cystitis without hematuria; E87.1 Hypo-osmolality and hyponatremia; J44.1 Chronic obstructive pulmonary disease with (acute) exacerbation; J81.1 Chronic pulmonary edema; E87.21 Acute metabolic acidosis; J44.0 Chronic obstructive pulmonary disease with (acute) lower respiratory infection; Z68.41 Body mass index [BMI] 40.0-44.9, adult; J96.02 Acute respiratory failure with hypercapnia; E66.01 Morbid (severe) obesity due to excess calories; R73.9 Hyperglycemia, unspecified; K72.10 Chronic hepatic failure without coma; F17.200 Nicotine dependence, unspecified, uncomplicated; Z20.822 Contact with and (suspected) exposure to COVID-19; E86.0 Dehydration; E87.70 Fluid overload, unspecified; I12.9 Hypertensive chronic kidney disease with stage 1 through stage 4 chronic kidney disease, or unspecified chronic kidney disease; N18.9 Chronic kidney disease, unspecified; X30.XXXA Exposure to excessive natural heat, initial encounter
CPT/HCPCS: 31500; 36415; 36569; 36600; 70450; 71045; 71250; 74018; 76705; 76770; 80048; 80053; 80061; 80074; 80076; 80305; 81001; 82010; 82140; 82150; 82306; 82340; 82435; 82436; 82550; 82570; 82607; 82803; 82947; 82948; 83036; 83605; 83690; 83735; 83880; 83935; 84100; 84132; 84133; 84145; 84295; 84300; 84443; 84484; 84540; 85014; 85018; 85025; 85027; 85378; 85610; 85651; 85730; 86140; 86701; 86705; 86709; 86803; 87040; 87071; 87086; 87205; 87340; 87390; 87635; 87804; 93005; 93306; 93970; 94002; 94003; 94150; 94640; 94664; 96365; 96375; A4357; C1751; C1894; G0378; J0692; J1644; J1650; J1940; J2405; J2470; J2543; J2704; J2919; J3010; J3411; J3475; J3480; J3490; J7030; A9900